=== PATIENT | male | born 1955 | race Caucasian/White ===

== ENCOUNTER 2019-04-27 14:59 | Outpatient (CLI) | payer OTHER, SELFPAY ==
--- NOTE | 2019-04-27 | XR_ITS ---
WS: [id number] Right knee, 3 views, 04/27/2019 Clinical Data: BILATERAL KNEE PAIN Comparison: None. Findings: No fractures or dislocations are seen. The joint spaces are normal. The patella is intact. The soft t issues are unremarkable. XR/XR knee RT 3V* [id number] Impression: Negative right knee.
--- NOTE | 2019-04-27 | XR_ITS ---
WS: [id number] Left knee, 3 views, 04/27/2019 Clinical Data: BILATERAL KNEE PAIN Comparison: None. Findings: No fractures or dislocations are seen. The joint spaces are normal. The patella is intact. The soft t issues are unremarkable. XR/XR knee LT 3V* [id number] Impression: Negative left knee.
== END 2019-04-27 15:00 | disposition home or self-care (01) ==
LOC: RADOUTREAD 04-28 08:41
PROVIDERS: Visit Provider Nurse Practitioner Family
DX: Z01.89 Encounter for other specified special examinations (principal)

== ENCOUNTER → 2019-06-23 10:46 | Outpatient (BNVA) | payer OTHER, SELFPAY | PROVIDERS: PCP Nurse Practitioner Family; Referring Provider Nurse Practitioner Family; Visit Provider Urology | DX: Z12.5 Encounter for screening for malignant neoplasm of prostate (principal); N39.9 Disorder of urinary system, unspecified; N52.1 Erectile dysfunction due to diseases classified elsewhere; N48.6 Induration penis plastica | CPT/HCPCS: 81001 ==

== ENCOUNTER → 2019-12-25 08:15 | Outpatient (BNVA) | payer OTHER, SELFPAY | PROVIDERS: PCP Nurse Practitioner Family; Visit Provider Nurse Practitioner Family | DX: N52.1 Erectile dysfunction due to diseases classified elsewhere (principal); N48.6 Induration penis plastica | CPT/HCPCS: 81003; 84403 ==

== ENCOUNTER → 2020-06-25 08:00 | Outpatient (BNVA) | payer OTHER, SELFPAY | PROVIDERS: PCP Nurse Practitioner Family; Visit Provider Urology | DX: N48.6 Induration penis plastica (principal); N52.1 Erectile dysfunction due to diseases classified elsewhere | CPT/HCPCS: 81003 ==

== ENCOUNTER → 2020-12-24 08:57 | Outpatient (BNVA) | payer OTHER, SELFPAY | PROVIDERS: PCP Nurse Practitioner Family; Visit Provider Urology | DX: N40.1 Benign prostatic hyperplasia with lower urinary tract symptoms (principal); N52.1 Erectile dysfunction due to diseases classified elsewhere | CPT/HCPCS: 81003 ==

== ENCOUNTER 2021-01-07 08:20 | Outpatient (CLI) | payer OTHER, MEDICAID, SELFPAY ==
--- NOTE | 2021-01-07 08:47 | MR_ITS ---
WS: [id number] MRI HEAD WITH CONTRAST TECHNIQUE: Sagittal T1, T2 axial, T2 axial FLAIR, axial susceptibility weighted imaging, axial diffus ion weighted images, and coronal T2 images were obtained. Pre and post-T1 axial and post T1 coronal i mages. ADC and FSPGR images. CLINICAL INFORMATION: RESTING TREMOR COMPARISON: None. FINDINGS: No evidence of restricted diffusion to suggest acute ischemia. Ventricular system and basal cisterns are patent. Mild small vessel changes. Moderate parenchymal volume loss. Normal posterior fossa. Mult iple tiny chronic lacunar infarcts in the cerebellum. Normal vascular flow voids at the skull base. N o extra axial fluid collections. No evidence of mass or mass effect. Paranasal sinuses and mastoid air cells are well aerated. No hemosiderin on susceptibly weighted imag es. Normal optic chiasm and pituitary infundibulum. Mild symmetric atrophy temporal lobes and hippoca mpal formations. Normal cavernous sinuses and Meckel's cave. No abnormal intracranial enhancement. Normal visualized dural venous sinuses. MR/MR head wo/w con [id number] IMPRESSION: 1. No evidence of restricted diffusion to suggest acute ischemia. 2. Mild small vessel changes with moderate parenchymal volume loss. 3. 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 4. No hemosiderin on susceptibly weighted images. 5. Mild to moderate symmetric atrophy temporal lobes and hippocampal formation s. 6. No abnormal gadolinium enhancement.
== END 2021-01-07 08:21 | disposition home or self-care (01) ==
PROVIDERS: PCP Nurse Practitioner Family; Visit Provider Nurse Practitioner
DX: G25.2 Other specified forms of tremor (principal); G31.9 Degenerative disease of nervous system, unspecified; I63.9 Cerebral infarction, unspecified
CPT/HCPCS: 70553; A9579

== ENCOUNTER → 2021-01-27 10:14 | Outpatient (BNVA) | payer OTHER, MEDICAID, SELFPAY | PROVIDERS: PCP Nurse Practitioner Family; Referring Provider Nurse Practitioner; Visit Provider Nurse Practitioner | DX: G25.2 Other specified forms of tremor (principal); G31.89 Other specified degenerative diseases of nervous system | CPT/HCPCS: 99204 ==

== ENCOUNTER → 2021-07-07 09:27 | Outpatient (BNVA) | payer MEDICAID, SELFPAY | PROVIDERS: PCP Nurse Practitioner Family; Visit Provider Specialist | DX: G20 Parkinson's disease (principal); G47.00 Insomnia, unspecified | CPT/HCPCS: 99214 ==

== ENCOUNTER → 2022-01-05 10:43 | Outpatient (BNVA) | payer MEDICARE, MEDICAID, SELFPAY | PROVIDERS: PCP Nurse Practitioner Family; Visit Provider Specialist | DX: G20 Parkinson's disease (principal) | CPT/HCPCS: 99213 ==

== ENCOUNTER → 2022-05-13 10:19 | Outpatient (BNVA) | payer MEDICARE, MEDICAID, SELFPAY | PROVIDERS: PCP Nurse Practitioner Family; Visit Provider Specialist | DX: G20 Parkinson's disease (principal) | CPT/HCPCS: 99213 ==

== ENCOUNTER 2022-09-18 06:00 | Outpatient (RCR) | payer MEDICARE, MEDICAID, SELFPAY | END 2022-09-28 23:59 | disposition home or self-care (01) | LOC: SST 06:00 | PROVIDERS: PCP Nurse Practitioner Family; Visit Provider Specialist | DX: G20 Parkinson's disease (principal) | CPT/HCPCS: 92524 ==

== ENCOUNTER 2022-09-29 06:00 | Outpatient (RCR) | payer MEDICARE, MEDICAID, SELFPAY | END 2022-10-29 23:59 | disposition home or self-care (01) | LOC: SST 06:00 | PROVIDERS: PCP Nurse Practitioner Family; Visit Provider Specialist | DX: G20 Parkinson's disease (principal); R49.8 Other voice and resonance disorders | CPT/HCPCS: 92507 ==

== ENCOUNTER 2022-10-06 10:01 | Outpatient (CLI) | payer MEDICARE, MEDICAID, SELFPAY ==
--- NOTE | 2022-10-13 11:07 | OP.DCCON ---
Reason for Visit: 46310 Z68.34 Person Interviewed: Patient Medical History, Labs and Background: Pt stated health problems began 5 yrs ago with discovery of Parkinsons. Height: 5 ft 10 in Weight: 230 lb BMI: 33.1 kg/m2 IBW: 166 lbs Weight History: Pt stated that in his 20's and 30's he was 150 lbs with 31 inch waist. Concerns and Goals: Dannie doesn't like the weight around his abdomen. He said he even looked into liposuction to get rid of it . Sleep Hygiene: He said it is difficult to sleep, but that is r/t his Parkinsons Dx he thought. Physical Activity: Everyday he spends 30 minutes on the treadmill and does sit ups and curls. Other Feeding Issues: He currently is practicing intermittent fasting. Food Allergies and Sensitivities: No allergies that he is aware of. 24 Hour Recall: Breakfast Time: Snack Time: Lunch Time:11:30 sandwich or salad Snack Time: 2 beers in afternoon Dinner Time: 5:30-6:00 fish or chx + rice + veggies Snack Time: blueberries and blackberries Soda vs Milk vs Water: He has coffee in the morning, drinks water, has a couple of lite beers in the afternoon Additional Comments: Dannie is working hard through his diet and exercise. He described himself as more of a funtional eater rather then emotional eater. He also expressed interest in the Mediterranean meal plan so links were emailed regarding for IF and that. Recommendations: Assessment: Dannie is frustrated with the excess wt and wants it to be gone JEF - even if that means liposuction (which was ruled out d/t cost). From all he shared he is cultivating good habits. I recommended he find someone who would be a source of encouragement both for good days and bad days. Intermittent Fasting is a good idea, but we talked about taking breaks from that and to be careful when exercising, such that if he is dizzy or lightheaded to take a break and eat something. Nutrition Dx: Excessive Energy Intake r/t habits and patterns AEB BMI of 33.1 kg/m2, Class 1 obesity. Interventions: We discussed continuing to take ownership of the areas under his control I encouraged him to add some kind of protein shake or extra meal snack as his kcals seem low. Drinking water continually throughout the day was advocated as his two favorites, coffee and beer need to be counteracted. Praised his exercise but also mentioned being aware of lightheadedness since he works out in the morning before eating anything. Finding a support person would help motivation and he thought his daughter or lady friend would be good choices for that. He has been active looking up recipes so I sent links both to intermittent fasting and The Mediterranean meal plan. We discussed that it took years to get to where he is now and that he needs to be patient and follow these guidelines and will see a difference. Monitoring and Evaluation: My office extension and email were given for follow up questions. Coding Level of Care Code Nutrition/Individ/Init 45min Time Spent (min) 45
== END 2022-10-06 10:02 | disposition home or self-care (01) ==
PROVIDERS: PCP Nurse Practitioner Family; Visit Provider Nurse Practitioner Family
DX: Z71.3 Dietary counseling and surveillance (principal); E66.9 Obesity, unspecified; Z68.33 Body mass index [BMI] 33.0-33.9, adult; G20 Parkinson's disease
CPT/HCPCS: 97802

== ENCOUNTER 2022-10-30 06:00 | Outpatient (RCR) | payer MEDICARE, SELFPAY | END 2022-11-28 23:59 | disposition home or self-care (01) | LOC: SST 06:00 | PROVIDERS: PCP Nurse Practitioner Family; Visit Provider Specialist | DX: G20 Parkinson's disease (principal) | CPT/HCPCS: 92507 ==

== ENCOUNTER → 2022-11-24 10:04 | Outpatient (BNVA) | payer MEDICARE, MEDICAID, SELFPAY | PROVIDERS: PCP Nurse Practitioner Family; Visit Provider Specialist | DX: G20 Parkinson's disease (principal); G25.81 Restless legs syndrome | CPT/HCPCS: 99214 ==

== ENCOUNTER 2022-11-29 06:00 | Outpatient (RCR) | payer MEDICARE, SELFPAY | END 2022-12-29 23:59 | disposition home or self-care (01) | LOC: SST 06:00 | PROVIDERS: PCP Nurse Practitioner Family; Visit Provider Specialist | DX: G20.A1 Parkinson's disease without dyskinesia, without mention of fluctuations (principal) | CPT/HCPCS: 92507 ==

== ENCOUNTER 2022-12-30 06:00 | Outpatient (RCR) | payer MEDICARE, MEDICAID, SELFPAY | END 2023-01-28 23:59 | disposition home or self-care (01) | LOC: SST 06:00 | PROVIDERS: PCP Nurse Practitioner Family; Visit Provider Specialist | DX: G20.A1 Parkinson's disease without dyskinesia, without mention of fluctuations (principal) | CPT/HCPCS: 92507 ==

== ENCOUNTER 2023-01-06 09:28 | Outpatient (RCR) | payer MEDICARE, MEDICAID, SELFPAY | END 2023-01-28 23:59 | disposition home or self-care (01) | LOC: SPT 09:28 | PROVIDERS: PCP Nurse Practitioner Family; Visit Provider Nurse Practitioner Family | DX: M54.50 Low back pain, unspecified (principal) | CPT/HCPCS: 92507; 97110; 97161 ==

== ENCOUNTER 2023-01-19 07:01 | Outpatient (CLI) | payer MEDICARE, MEDICAID, SELFPAY ==
--- NOTE | 2023-01-19 | MR_ITS ---
WS: [id number] MRI LUMBAR SPINE NONCONTRAST TECHNIQUE: Sagittal T1, T2 and STIR imaging. Axial T1 and T2 imaging. CLINICAL INFORMATION: LUMBAR DDD COMPARISON: None. FINDINGS: Mild lumbar curve. Disc space narrowing worse at L5-S1. No high-grade central canal stenosis. L1-L2: Normal. L2-L3: Normal. L3-L4: Minimal annular bulging. Spinal canal and foramen are patent. Mild facet arthropathy. L4-L5: Mild annular bulging. Moderate facet arthropathy. Tiny RIGHT foraminal protrusion with mild RI GHT foraminal narrowing. LEFT foramen is patent. Mild narrowing of the thecal sac with prominent epid ural fat. L5-S1: Disc osteophyte complex with endplate ridging. Mild bilateral foraminal narrowing. Mild facet arthropathy. Mild RIGHT greater than LEFT foraminal narrowing. Visualized pelvic bony structures: Normal. Paravertebral soft tissues: Normal. IMPRESSION: 1. Mild lumbar curve. No acute compression. Disc space narrowing worse at L5-S1. 2. Mild narrowing of the thecal sac at L4-5 due to prominent epidural fat. 3. Small RIGHT foraminal protrusion L4-5 slightly encroaching on the exiting RIGHT L4 nerve root. 4. Mild bilateral L5-S1 foraminal narrowing RIGHT greater than LEFT. Slight impingement exiting RIGH T L5 nerve root. 5. Mild to moderate facet arthropathy L3-L5.
== END 2023-01-19 07:02 | disposition home or self-care (01) ==
LOC: RAD 07:01
PROVIDERS: PCP Nurse Practitioner Family; Visit Provider Nurse Practitioner Family
DX: M51.36 Other intervertebral disc degeneration, lumbar region (principal); M48.07 Spinal stenosis, lumbosacral region; M47.816 Spondylosis without myelopathy or radiculopathy, lumbar region
CPT/HCPCS: 72148

== ENCOUNTER 2023-01-29 06:00 | Outpatient (RCR) | payer MEDICARE, MEDICAID, SELFPAY | END 2023-02-28 23:59 | disposition home or self-care (01) | LOC: SPT 06:00 | PROVIDERS: PCP Nurse Practitioner Family; Visit Provider Nurse Practitioner Family | DX: M54.50 Low back pain, unspecified (principal); G89.29 Other chronic pain | CPT/HCPCS: 97110 ==

== ENCOUNTER 2023-01-29 06:00 | Outpatient (RCR) | payer MEDICARE, MEDICAID, SELFPAY | END 2023-02-28 23:59 | disposition home or self-care (01) | LOC: SST 06:00 | PROVIDERS: PCP Nurse Practitioner Family; Visit Provider Specialist | DX: G20.A1 Parkinson's disease without dyskinesia, without mention of fluctuations (principal) | CPT/HCPCS: 92507 ==

== ENCOUNTER 2023-03-01 06:00 | Outpatient (RCR) | payer MEDICARE, MEDICAID, SELFPAY | END 2023-03-31 23:59 | disposition home or self-care (01) | LOC: SST 06:00 | PROVIDERS: PCP Nurse Practitioner Family; Visit Provider Specialist | DX: R49.8 Other voice and resonance disorders (principal); G20.A1 Parkinson's disease without dyskinesia, without mention of fluctuations | CPT/HCPCS: 92507 ==

== ENCOUNTER 2023-03-01 06:00 | Outpatient (RCR) | payer MEDICARE, MEDICAID, SELFPAY | END 2023-03-31 23:59 | disposition home or self-care (01) | LOC: SPT 06:00 | PROVIDERS: PCP Nurse Practitioner Family; Visit Provider Nurse Practitioner Family | DX: M54.50 Low back pain, unspecified (principal); G89.29 Other chronic pain | CPT/HCPCS: 97110 ==

== ENCOUNTER → 2023-03-16 09:22 | Outpatient (BNVA) | payer MEDICARE, MEDICAID, SELFPAY | PROVIDERS: PCP Nurse Practitioner Family; Referring Provider Nurse Practitioner Family; Visit Provider Anesthesiology Pain Medicine | DX: M47.816 Spondylosis without myelopathy or radiculopathy, lumbar region; M79.18 Myalgia, other site; M48.061 Spinal stenosis, lumbar region without neurogenic claudication | CPT/HCPCS: 99204 ==

== ENCOUNTER → 2023-03-29 13:52 | Outpatient (BNVA) | payer MEDICARE, MEDICAID, SELFPAY | PROVIDERS: PCP Nurse Practitioner Family; Visit Provider Anesthesiology Pain Medicine | DX: M79.18 Myalgia, other site (principal); M54.9 Dorsalgia, unspecified; M47.816 Spondylosis without myelopathy or radiculopathy, lumbar region | CPT/HCPCS: 20553; 99213; J1030; J3490 ==

== ENCOUNTER 2023-04-01 06:00 | Outpatient (RCR) | payer MEDICARE, MEDICAID, SELFPAY | END 2023-04-29 23:59 | disposition home or self-care (01) | LOC: SST 06:00 | PROVIDERS: PCP Nurse Practitioner Family; Visit Provider Specialist | DX: R49.8 Other voice and resonance disorders (principal); G20.A1 Parkinson's disease without dyskinesia, without mention of fluctuations | CPT/HCPCS: 92507 ==

== ENCOUNTER → 2023-04-29 10:07 | Outpatient (BNVA) | payer MEDICARE, SELFPAY | PROVIDERS: PCP Nurse Practitioner Family; Visit Provider Anesthesiology Pain Medicine | DX: M47.816 Spondylosis without myelopathy or radiculopathy, lumbar region; M79.18 Myalgia, other site | CPT/HCPCS: 99213 ==

== ENCOUNTER 2023-04-30 06:00 | Outpatient (RCR) | payer MEDICARE, SELFPAY | END 2023-05-30 23:59 | disposition home or self-care (01) | LOC: SST 06:00 | PROVIDERS: PCP Nurse Practitioner Family; Visit Provider Specialist | DX: R49.8 Other voice and resonance disorders (principal); G20.A1 Parkinson's disease without dyskinesia, without mention of fluctuations | CPT/HCPCS: 92507 ==

== ENCOUNTER → 2023-05-18 14:35 | Outpatient (BNVA) | payer MEDICARE, SELFPAY | PROVIDERS: PCP Nurse Practitioner Family; Visit Provider Anesthesiology Pain Medicine | DX: M79.18 Myalgia, other site (principal); M47.816 Spondylosis without myelopathy or radiculopathy, lumbar region | CPT/HCPCS: 20553; 99214; J1030; J3490 ==

== ENCOUNTER → 2023-05-20 07:51 | Outpatient (BNVA) | payer MEDICARE, SELFPAY | PROVIDERS: PCP Nurse Practitioner Family; Visit Provider Nurse Practitioner Family | DX: L81.4 Other melanin hyperpigmentation (principal); L82.1 Other seborrheic keratosis; L72.0 Epidermal cyst; L91.8 Other hypertrophic disorders of the skin; D22.5 Melanocytic nevi of trunk | CPT/HCPCS: 11200; 99203 ==

== ENCOUNTER 2023-05-31 06:00 | Outpatient (RCR) | payer MEDICARE, SELFPAY | END 2023-06-16 23:59 | disposition home or self-care (01) | LOC: SST 06:00 | PROVIDERS: PCP Nurse Practitioner Family; Visit Provider Specialist | DX: R49.8 Other voice and resonance disorders (principal); G20.A1 Parkinson's disease without dyskinesia, without mention of fluctuations | CPT/HCPCS: 92507 ==

== ENCOUNTER → 2023-07-20 14:15 | Outpatient (BNVA) | payer MEDICARE, SELFPAY | PROVIDERS: PCP Nurse Practitioner Family; Visit Provider Anesthesiology Pain Medicine | DX: M79.18 Myalgia, other site (principal); M47.816 Spondylosis without myelopathy or radiculopathy, lumbar region | CPT/HCPCS: 20553; 99214; J1010; J3490 ==

== ENCOUNTER → 2023-08-12 10:10 | Outpatient (BNVA) | payer MEDICARE, SELFPAY | PROVIDERS: PCP Nurse Practitioner Family; Visit Provider Anesthesiology Pain Medicine | DX: M47.816 Spondylosis without myelopathy or radiculopathy, lumbar region; M79.18 Myalgia, other site | CPT/HCPCS: 99214 ==

== ENCOUNTER → 2023-08-20 12:02 | Outpatient (BNVA) | payer MEDICARE, SELFPAY | PROVIDERS: PCP Nurse Practitioner Family; Visit Provider Specialist | DX: G20.B2 Parkinson's disease with dyskinesia, with fluctuations (principal); G25.81 Restless legs syndrome | CPT/HCPCS: 99214 ==

== ENCOUNTER → 2024-01-20 07:55 | Outpatient (BNVA) | payer MEDICARE, SELFPAY | PROVIDERS: PCP Nurse Practitioner Family; Visit Provider Specialist | DX: G20.B2 Parkinson's disease with dyskinesia, with fluctuations (principal); G25.81 Restless legs syndrome; R51.9 Headache, unspecified; G89.29 Other chronic pain; R03.0 Elevated blood-pressure reading, without diagnosis of hypertension | CPT/HCPCS: 99214 ==

== ENCOUNTER → 2024-03-08 09:14 | Outpatient (BNVA) | payer MEDICARE, SELFPAY | PROVIDERS: PCP Nurse Practitioner Family; Visit Provider Anesthesiology Pain Medicine | DX: M47.816 Spondylosis without myelopathy or radiculopathy, lumbar region (principal); M79.18 Myalgia, other site | CPT/HCPCS: 20553; 99214; J1010; J3490 ==

== ENCOUNTER → 2024-05-08 14:55 | Outpatient (BNVA) | payer MEDICARE, SELFPAY | PROVIDERS: PCP Nurse Practitioner Family; Visit Provider Nurse Practitioner Family | DX: L82.1 Other seborrheic keratosis (principal); L81.4 Other melanin hyperpigmentation; L57.8 Other skin changes due to chronic exposure to nonionizing radiation; D22.5 Melanocytic nevi of trunk; L73.8 Other specified follicular disorders; L82.0 Inflamed seborrheic keratosis; L29.89 Other pruritus; R20.8 Other disturbances of skin sensation; R58 Hemorrhage, not elsewhere classified; Z78.9 Other specified health status; L53.8 Other specified erythematous conditions | CPT/HCPCS: 17110; 99213 ==

== ENCOUNTER → 2024-06-06 08:46 | Outpatient (BNVA) | payer MEDICARE, SELFPAY | PROVIDERS: PCP Nurse Practitioner Family; Visit Provider Anesthesiology Pain Medicine | DX: M79.18 Myalgia, other site (principal); M54.9 Dorsalgia, unspecified | CPT/HCPCS: 20553; 99213; J1010; J3490 ==

== ENCOUNTER → 2024-07-19 09:21 | Outpatient (BNVA) | payer MEDICARE, SELFPAY | PROVIDERS: PCP Nurse Practitioner Family; Visit Provider Specialist | DX: G20.B2 Parkinson's disease with dyskinesia, with fluctuations (principal); G25.81 Restless legs syndrome; R51.9 Headache, unspecified; G89.29 Other chronic pain; R03.0 Elevated blood-pressure reading, without diagnosis of hypertension | CPT/HCPCS: 99213 ==

== ENCOUNTER → 2024-09-04 12:35 | Outpatient (BNVA) | payer MEDICARE, SELFPAY | PROVIDERS: PCP Nurse Practitioner Family; Visit Provider Anesthesiology Pain Medicine | DX: M79.18 Myalgia, other site (principal); M54.9 Dorsalgia, unspecified | CPT/HCPCS: 20553; 99213; J1010; J3490 ==

== ENCOUNTER → 2025-01-03 12:50 | Outpatient (BNVA) | payer MEDICARE, SELFPAY | PROVIDERS: PCP Nurse Practitioner Family; Visit Provider Anesthesiology Pain Medicine | DX: M79.18 Myalgia, other site (principal); M54.9 Dorsalgia, unspecified | CPT/HCPCS: 20553; 99214; J1010; J3490 ==